=== PATIENT | male | born 1945 | race Caucasian/White ===

== ENCOUNTER 2018-12-01 10:29 | Inpatient (IN) | payer MEDICARE, OTHER ==
[~2018-12-01] VITALS: Ht 177.8 cm; Wt 95.8 kg
[~2018-12-01 10:29] MED LIST: ATOR10 PO; GLIM2 PO; GLYBURIDE; INSULANPEN SC; LISI20 PO; METF500 PO; METFORMIN; Metformin HCl1000 MG PO
[2018-12-01 11:30] LABS: Calcium, Ionized (POC) 1.32 mmol/L (1.10-1.46); Chloride (POC) 108 mmol/L (98-108); Creatinine (POC) 6.2 mg/dL (0.8-1.3); Glucose (ISTAT POC) 182 mg/dL (70-99); Hemoglobin (POC) 10.2 g/dL (13.5-17.5); Potassium (POC) 6.5 mmol/L (3.5-5.5); Sodium (POC) 138 mmol/L (135-148); Total CO2 (POC) 21 mmol/L (21-32)
[2018-12-01 12:46] LABS: BASOPHILS ABSOLUTE AUTO 0.02 K/mm3 (0.00-0.23); BASOPHILS PERCENT AUTO 1 % (0-2); EOSINOPHILS ABSOLUTE AUTO 0.11 K/mm3 (0.00-0.68); EOSINOPHILS PERCENT AUTO 3 % (0-6); Hematocrit 31.2 % (37.0-53.0); Hemoglobin 9.9 g/dL (13.5-17.5); IMMATURE GRAN ABSOLUTE AUTO 0.04 K/mm3 (0.00-0.10); IMMATURE GRAN PERCENT AUTO 1 % (0-1); LYMPHOCYTES ABSOLUTE AUTO 0.85 K/mm3 (0.84-5.20); LYMPHOCYTES PERCENT AUTO 25 % (21-46); MONOCYTES ABSOLUTE AUTO 0.21 K/mm3 (0.16-1.47); MONOCYTES PERCENT AUTO 6 % (4-13); Mean Corpuscular HGB Conc 31.7 g/dL (31.5-36.5); NEUTROPHILS ABSOLUTE AUTO 2.17 K/mm3 (1.96-9.15); NEUTROPHILS PERCENT AUTO 64 % (41-73); Platelet Count 156 K/mm3 (150-400); RDW Coefficient Variation 15.4 % (11.7-14.2); RDW Standard Deviation 60.9 fL (35.1-46.3); Red Blood Cell Count 2.91 M/mm3 (4.30-5.90)
[2018-12-01 13:00] LABS: Mean Corpuscular Volume 107 fL (80-100); Troponin I <0.015 ng/mL (0.000-0.040)
[2018-12-01 13:03] LABS: Alanine Aminotransfer (ALT/SGP 21 U/L (12-78); Albumin, Blood 3.5 g/dL (3.4-5.0); Albumin/Globulin Ratio 0.8 (0.8-1.8); Alk Phos 145 U/L (50-136); Anion Gap 6 mmol/L (6-16); Aspartate Aminotrans (AST/SGOT 7 U/L (12-37); Bilirubin, Total 0.4 mg/dL (0.1-1.0); Blood Urea Nitrogen 66 mg/dL (8-24); Bun/Creatinine Ratio 10.9 (12.0-20.0); CO2, Blood 21 mmol/L (21-32); Calcium, Blood 9.1 mg/dL (8.5-10.1); Chloride, Blood 110 mmol/L (98-108); Creatinine, Blood 6.03 mg/dL (0.60-1.20); Globulin, Blood 4.4 g/dL (2.2-4.0); Glomerular Filtration Rate 10 (60-); Glucose, Blood 162 mg/dL (70-99); Potassium, Blood 6.5 mmol/L (3.5-5.5); Sodium, Blood 137 mmol/L (136-145); Total Protein, Blood 7.9 g/dL (6.4-8.2)
[2018-12-01] MEDS ORDERED: ASPI81CH PO (18:00)
[2018-12-01] MEDS ORDERED: ATOR10 PO (18:04)
--- NOTE | 2018-12-01 18:15 | NUR ---
INITIAL ASSESSMENT PATIENT ARRIVED TO THE UNIT AT 1750. PATIENT WEAK BUT ABLE TO TRANSFER SELF TO ICU BED FROM ER [facility] WITH SBA. PATIENT ALERT AND ORIENTED X 4, AFEBRILE. PATIENT STATES HE HAD "BURNING CHEST PAIN WITH PRESSURE" IN ER JUST BEFORE COMING TO UNIT BUT THAT 2 NITRO HAS ALLEVIATED IT. PATIENT HAS NO COMPLAINTS AT THIS TIME. PATIENT SATTING WELL ON RA. LUNG SOUNDS ARE COARSE THROUGHOUT. PATIENT REPORTS THAT HE HAS HAD AN OCCASIONAL, MOIST, NONPRODUCTIVE COUGH. PATIENT IN SR TO ST, HR 90S TO LOW 100S. BP STABLE. ABDOMEN MODERATELY DISTENDED. PATIENT REPORTS THAT HE HAS BEEN HAVING DIARRHEA FOR ABOUT A MONTH NOW. PATIENT VOIDING YELLOW COLORED URINE INTO BEDSIDE URINAL. PATIENT REPORTS RECENT POLYDIPSIA AND POLYURIA. PATIENT ORIENTED TO ROOM AND CALL SYSTEN. AT BEDSIDE. BED LOW AND CALL LIGHT WITHIN REACH.
--- NOTE | 2018-12-01 18:50 | NUR ---
DR. HAWK IN ROOM TO SEE PATIENT.
--- NOTE | 2018-12-01 18:54 | NUR ---
PATIENT RESTING QUIETLY IN BED, SPEAKING TO DR. BATES. PATIENT HAS NO COMPLAINTS OF PAIN. NURSE STARTING HEPARIN DRIP. D5W 1/2 NS INFUSING AT 50 MLS/ HOUR. VITAL SIGNS REMAIN STABLE. REPORT WILL BE GIVEN TO ONCOMING ARBORIST CLIMBER NURSE SHORTLY.
--- NOTE | 2018-12-01 19:15 | NUR ---
ASSUME CARE: REPORT RECIEVED FROM OFF GOING RN KENNEDY. MONITOR INTACT SHOWING SINUS RHYTHM/SINUS TACH. HEART RATE 80'S-100'S. LUNG SOUNDS CLEAR UPPER WITH COARSE BASES RESPIRATIONS REGULAR AND EASY ON ROOM AIR SPO2 97% ABDOMEN SOFT WITH BOWEL SOUND FOUR QUADS. VOIDS MARIA DEL CARMEN URINE PER URINAL DR HAWK AT BEDSIDE ORDERS NOTED. SEGUNDO WELL. REPOSITIONS SELF IN BED. WILL CONTINUE TO MONITOR AND REPORT CHANGE IN PATIENT CONDITION. SKIN WARM/DRY/INTACT NO EDEMA NOTED
[2018-12-01 20:19] LABS: Source, Urine Voided
[2018-12-01 20:27] LABS: Appearance, Urine Clear (Clear); Bilirubin, Urine Neg (Neg); Blood, Urine Neg (Neg); Color, Urine Yellow (P-Yellow); Glucose Qualitative, Urine 3+ (Neg); Ketones, Urine Neg (Neg); Leukocyte Esterase, Urine Neg (Neg); Nitrite, Urine Neg (Neg); Protein, Urine 1+ (Neg); Urobilinogen, Urine NORM (Normal); pH, Urine 6.5 (5.0-8.0)
[2018-12-01 21:51] LABS: Anion Gap 8 mmol/L (6-16); Blood Urea Nitrogen 67 mg/dL (8-24); Bun/Creatinine Ratio 11.4 (12.0-20.0); CO2, Blood 20 mmol/L (21-32); Calcium, Blood 8.9 mg/dL (8.5-10.1); Chloride, Blood 109 mmol/L (98-108); Creatinine, Blood 5.88 mg/dL (0.60-1.20); Glomerular Filtration Rate 10 (60-); Glucose, Blood 183 mg/dL (70-99); Phosphorus, Blood 3.9 mg/dL (2.5-4.9); Potassium, Blood 6.1 mmol/L (3.5-5.5); Sodium, Blood 137 mmol/L (136-145)
--- NOTE | 2018-12-01 22:01 | NUR ---
DR HAWK NOTIFIED OF LAB RESULTS ORDERS NOTED CONTINUE TO MONITOR AND REPORT CHANGE IN PATIENT CONDITION
--- NOTE | 2018-12-02 02:58 | NUR ---
HEPARIN GTT DOSEAGE CHANGED TO 15UNITS/KG/HR 24.6ML/HR CONTINUE TO MONITOR AND REPORT CHANGE IN PATIENT CONDITION
[2018-12-02 03:50] LABS: BASOPHILS ABSOLUTE AUTO 0.01 K/mm3 (0.00-0.23); BASOPHILS PERCENT AUTO 0 % (0-2); EOSINOPHILS ABSOLUTE AUTO 0.07 K/mm3 (0.00-0.68); EOSINOPHILS PERCENT AUTO 2 % (0-6); Hematocrit 26.9 % (37.0-53.0); Hemoglobin 8.6 g/dL (13.5-17.5); IMMATURE GRAN ABSOLUTE AUTO 0.02 K/mm3 (0.00-0.10); IMMATURE GRAN PERCENT AUTO 1 % (0-1); LYMPHOCYTES ABSOLUTE AUTO 1.05 K/mm3 (0.84-5.20); LYMPHOCYTES PERCENT AUTO 37 % (21-46); MONOCYTES ABSOLUTE AUTO 0.24 K/mm3 (0.16-1.47); MONOCYTES PERCENT AUTO 8 % (4-13); Mean Corpuscular Volume 106 fL (80-100); Mean Platelet Volume 8.6 fL (9.1-12.4); NEUTROPHILS ABSOLUTE AUTO 1.49 K/mm3 (1.96-9.15); NEUTROPHILS PERCENT AUTO 52 % (41-73); Platelet Count 141 K/mm3 (150-400); RDW Coefficient Variation 15.1 % (11.7-14.2); Red Blood Cell Count 2.53 M/mm3 (4.30-5.90); White Blood Cell Count 2.88 K/mm3 (4.00-11.30)
[2018-12-02 04:25] LABS: Bun/Creatinine Ratio 11.8 (12.0-20.0); Calcium, Blood 8.5 mg/dL (8.5-10.1); Creatinine, Blood 5.95 mg/dL (0.60-1.20); Magnesium, Blood 1.5 mg/dL (1.6-2.4); Potassium, Blood 5.5 mmol/L (3.5-5.5)
--- NOTE | 2018-12-02 06:05 | NUR ---
SHIFT SUMMARY: RESTS QUIETLY WHEN UNDISTURBED. AWAKENS EASILY MONITOR INTACT SHOWING SINUS RHYTHM/SINUS TACH. HEART RATE 70'-100. DENIES DISCOMFORT. LUNG SOUNDS CLEAR UPPER LOBES WITH COARSE DECREASED SOUNDS IN THE BASES. SPO2 95-97% SPOT CHECKS ON ROOM AIR RESPIRATIONS REGULAR AND EASY. ABDOMEN SOFT WITH BOWEL SOUNDS FOUR QUADS. VOIDS MARIA DEL CARMEN URINE PER URINAL. GAIT STEADY IN ROOM STANDS TO VOID. SKIN W/D/I. NO EDEMA NOTED. CONTINUE TO MONITOR AND REPORT CHANGE IN PATIENT CONDITION EKG OBTAINED.
--- NOTE | 2018-12-02 07:56 | NUR ---
ASSUMED CARE - DAYSHIFT PATIENT ALERT AND ORIENTED X4. RESP E/U ON ROOM AIR. PATIENT DENIES ANY PAIN. 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 ABD SOFT AND NONTENDER - BOWEL TONES NORMO-ACTIVE. HR REMAINS IN NSR 90'S. PATIENT IS RESTFUL AND DENIES ANY NEEDS AT THIS TIME. VOIDED CLEAR YELLOW URINE. WILL CONTINUE TO MONTIOR.
--- NOTE | 2018-12-02 14:39 | NUR ---
MD HALL TO ROOM FOR CONSULT RAFAEL STATED HE COULD DO PROCEDURE THIS EVENING OR TOMORROW - PATIENT HAS FURTHER QUESTIONS. TO RETURN TO ANSWER AND SIGN CONSENT.
[2018-12-02 16:37] LABS: Anion Gap 10 mmol/L (6-16); Blood Urea Nitrogen 70 mg/dL (8-24); Bun/Creatinine Ratio 11.5 (12.0-20.0); CO2, Blood 19 mmol/L (21-32); Calcium, Blood 8.4 mg/dL (8.5-10.1); Chloride, Blood 110 mmol/L (98-108); Creatinine, Blood 6.08 mg/dL (0.60-1.20); Glomerular Filtration Rate 10 (60-); Glucose, Blood 122 mg/dL (70-99); Phosphorus, Blood 5.1 mg/dL (2.5-4.9); Potassium, Blood 5.3 mmol/L (3.5-5.5); Sodium, Blood 139 mmol/L (136-145)
--- NOTE | 2018-12-02 17:37 | NUR ---
PCU DAYSHIFT SUMMARY PATIENT ALERT AND ORIENTED X4 T/O SHIFT. RESP E/U ON ROOM AIR. PATIENT REPORTS HEADACHE PAIN T/O SHIFT RELIEVED WITH TYLENOL PRN PER EMAR. HR REMAINS IN NSR. PROVIDER RAFAEL TO ROOM TO CONSULT ON NEPHROSTOMY TUBE PLACEMENT - PATIENT CONSENTED TO PROCEDURE. NO S/SX OF DISTRESS T/O SHIFT OR ACUTE DISTRESS. PATIENT VOIDED CLEAR YELLOW URINE T/O SHIFT. PATIENT INDEPENDENT IN ROOM T/O SHIFT. WILL CONTINUE TO MONITOR AND REPORT TO WINTERIZER RN.
--- NOTE | 2018-12-02 19:15 | NUR ---
REPORT RECIEVED FROM OFF GOING RN ART. MONITOR INTACT SHOWING SINUS RHYTHM. HEART RATE 70'S. DENIES CHEST PAIN CO HEADACHE MEDICATED WITH TYLENOL 650MG PO. LUNG SOUNDS CLEAR RESPIRATIONS REGULAR AND EASY ON ROOM AIR. SPO2 95-98% ABDOMEN SOFT WITH BOWEL SOUNDS FOUR QUADS. VOIDS MARIA DEL CARMEN URINE PER URINAL. SKIN W/D/I NO EDEMA NOTED GAIT STEADY IN ROOM. CONTINUE TO MONITOR AND REPORT CHANGE IN PATIENT CONDITION
--- NOTE | 2018-12-03 03:28 | NUR ---
C/O CHEST PAIN 05/06 EKG AND LAB OBTAINED NOT RADIATING CONTINUE TO MONITOR AND REPORT CHANGE IN PATIENT CONDITION
--- NOTE | 2018-12-03 03:43 | NUR ---
CALL TO MD PT REPORTED CHEST PAIN 05/06, EKG DONE AND PT MED WITH NTG SL. CALL OUT TO DR NELSON, ORDER RECEIVED FOR ASA. DR NELSON COMING UP TO SEE PT
--- NOTE | 2018-12-03 03:45 | NUR ---
DR LLANOS AT BEDSIDE. PT STATES CHEST PAIN EASED. AFTER THREE NTG SL. SKIN WARM/DRY. VOIDS MARIA DEL CARMEN URINE PER URINAL. REFUSES ASA "ITS BAD FOR MY KIDNEY." RESPIRATIONS REGULAR AND EASY SPO2 97% ON ROOM AIR. CONTINUE TO MONITOR AND REPORT CHANGE IN PATIENT CONDITION.
--- NOTE | 2018-12-03 07:47 | NUR ---
ASSUMED CARE: PT INDEPENDENT IN ROOM. DENIES NEEDS OR CONCERNS. CALL TO HEART CENTER TO DETERMINE TIME OF SURGERY AND WHEN HEPARIN SHOULD BE STOPPED. LASHAY IN HEART CENTER STATED SHE WOULD LOOK INTO IT AND CALL BACK. NO FURTHER NEEDS AT THIS TIME
--- NOTE | 2018-12-03 08:09 | NUR ---
ESTEBAN FROM [facility] CALLED AND STATED DR HALL INSTRUCTS TO TURN HEPARIN OFF NOW AND THAT PT WILL BE ANTICIPATED FOR PROCEDURE THIS AFTERNOON. PHARMACY AWARE THAT HEPARIN HAS BEEN TURNED OFF. SPOKE WITH ROSIE. PT SITTING UPRIGHT ON SIDE OF BED EATING BREAKFAST. [facility] INSTRUCTS NPO AFTER THIS
[2018-12-03 08:42] LABS: Albumin, Blood 3.1 g/dL (3.4-5.0); Anion Gap 13 mmol/L (6-16); Blood Urea Nitrogen 65 mg/dL (8-24); Bun/Creatinine Ratio 11.4 (12.0-20.0); CO2, Blood 19 mmol/L (21-32); Calcium, Blood 8.8 mg/dL (8.5-10.1); Chloride, Blood 109 mmol/L (98-108); Creatinine, Blood 5.71 mg/dL (0.60-1.20); Glomerular Filtration Rate 10 (60-); Glucose, Blood 150 mg/dL (70-99); Phosphorus, Blood 5.7 mg/dL (2.5-4.9); Potassium, Blood 4.8 mmol/L (3.5-5.5); Sodium, Blood 141 mmol/L (136-145)
--- NOTE | 2018-12-03 17:21 | NUR ---
PT CURRENTLY IN PROCEDURE AT CATALYST MANUFACTURING OPERATOR. WAITING IN ROOM
--- NOTE | 2018-12-03 18:04 | NUR ---
SHIFT SUMMARY: PT REMAINS IN PROCEDURE FOR NEPHROSTOMY PLACEMENT. AT BEDSIDE. BLOOD SUGARS HAVE BEEN STABLE AND PT DECLINED CHEST PAIN. NO ACUTE CHANGES OR NEEDS NOTED
--- NOTE | 2018-12-03 18:24 | NUR ---
PT RETURNED FROM PROCEDURE. NEPHROSTOMY IN PLACE LEFT FLANK DRAINING RED OUTPUT. CALL TO DR HALL TO ASK ABOUT DIET AND RESTARTING HEPARIN. OK FOR PT TO EAT. DISCUSSING HEPARIN WITH PHARMACY NOW
--- NOTE | 2018-12-03 20:00 | NUR ---
ASSUMED CARE OF PATIENT REPORT RECEIVED FROM JASMIN FLORES. PT BACK FROM SURGERY FOR NEPHROSTOMY. PT IS ALERT AND ORIENTED AND STATES HE HAS A 5/10 PAIN LEVEL IN HIS LEFT FLANK. BLOOD TINGED OUTPUT NOTICED. PT ABLE TO STAND AT BEDSIDE TO USE URINAL WITH NO NAUSEA OR DIZZINESS AND 250 OF LIGHT YELLOW URINE. D5W 1/2 RUNNING @50 ML/HR AND HEPARIN RUNNING AT 23 U/KG/HR. PT REMINDED TO USE CALL LIGHT APPROPRIATE FOR ASSISTANCE AMBULATING. SEE FULL SHIFT SUMMARY.
[2018-12-04 04:00] LABS: Anion Gap 10 mmol/L (6-16); Blood Urea Nitrogen 59 mg/dL (8-24); Bun/Creatinine Ratio 10.7 (12.0-20.0); CO2, Blood 20 mmol/L (21-32); Calcium, Blood 8.7 mg/dL (8.5-10.1); Chloride, Blood 111 mmol/L (98-108); Creatinine, Blood 5.51 mg/dL (0.60-1.20); Glomerular Filtration Rate 11 (60-); Glucose, Blood 173 mg/dL (70-99); Phosphorus, Blood 5.4 mg/dL (2.5-4.9); Potassium, Blood 4.8 mmol/L (3.5-5.5); Sodium, Blood 141 mmol/L (136-145)
--- NOTE | 2018-12-04 06:17 | NUR ---
SHIFT SUMMARY NO ACUTE CHANGES OVERNIGHT. PT ON 25 UNITS/KG/HR HEPARIN. LEFT NEPHROSTOMY HAD 3450 ML OF BLOOD TINGED URINE OUTPUT. ADDITIONALLY PT PUT OUT 750 ML URINE USING URINAL. PT IS STEADY ON HIS FEET AND REPORTS NO DIZZINESS/NAUSEA. LUNG SOUNDS CLEAR. PT MEDICATED FOR PAIN NEEDED. WILL REPORT TO DAYSHIFT NURSE.
--- NOTE | 2018-12-04 07:12 | NUR ---
ASSUMED CARE: PT RESTING QUIETLY. HEPARIN AND D5 1/2 NS RUNNING. NEPHROSTOMY PUTTING OUT CRANBERRY COLORED OUTPUT. PT INDEPENDENT IN ROOM. NO ACUTE NEEDS OR CONCERNS AT THIS TIME.
--- NOTE | 2018-12-04 11:44 | NUR ---
PT STATED DR HAWK CAME IN TO SEE HIM THIS AM. CALL TO DR HAWK TO GET DC INSTRUCTIONS. MESSAGE LEFT WITH DR SHAH'S CELL TO RELAY INFO. AWAITING CALL BACK
[2018-12-04] MEDS ORDERED: ACET325 PO (13:55)
[2018-12-04] MEDS ORDERED: ISOMON20 PO (13:56)
[2018-12-04] MEDS ORDERED: NITR.4SL SL (13:57)
[2018-12-04] MEDS ORDERED: OXYC5 PO (13:58)
--- NOTE | 2018-12-04 15:00 | NUR ---
PT'S IV DC'D WNL. DISCUSSED AND PROVIDED INSTRUCTIONS FOR CARE OF NEPHROSTOMY. PT TO HAVE FOLLOW UP WITH HOME HEALTH. PT SPOKE WITH SOLEDAD LAMAR PRIOR TO DC TO ARRANGE FOLLOW UP WITH HH. PT AWARE OF FOLLOW UP APPOINTMENTS WITH DR HAWK AND [facility]. ROLO FROM [facility] STATES THE OFFICE WILL ARRANGE FOLLOW UP WITH UROLOGY. LEG BAG AND EXTRA LARGE BAG PROVIDED. PT DECLINES FURTHER QUESTIONS OR CONCERNS. AMBULATORY UPON DC.
== END 2018-12-04 15:05 | disposition home health service (06) | DRG 543 ==
LOC: ER 10:29 → ICUE 15:27 → PCU 15:27 → ICUE 17:26
PROVIDERS: Emergency Medicine; Internal Medicine; ADMIT Family Medicine
PROC: 0T9430Z Drainage of Left Kidney Pelvis with Drainage Device, Percutaneous Approach (ICD-10-PCS; principal; 2018-12-03)
DX: C49.9 Malignant neoplasm of connective and soft tissue, unspecified (principal); N17.9 Acute kidney failure, unspecified; N13.30 Unspecified hydronephrosis; Z90.5 Acquired absence of kidney; E87.5 Hyperkalemia; Z85.46 Personal history of malignant neoplasm of prostate; Z90.79 Acquired absence of other genital organ(s); Z87.891 Personal history of nicotine dependence; Z79.4 Long term (current) use of insulin; E78.5 Hyperlipidemia, unspecified; D63.1 Anemia in chronic kidney disease; Z66 Do not resuscitate; N18.3 Chronic kidney disease, stage 3 (moderate); E11.22 Type 2 diabetes mellitus with diabetic chronic kidney disease; I12.9 Hypertensive chronic kidney disease with stage 1 through stage 4 chronic kidney disease, or unspecified chronic kidney disease; I25.5 Ischemic cardiomyopathy; R51 Headache
CPT/HCPCS: 36415; 50432; 71046; 76770; 76998; 78452; 80047; 80048; 80053; 80061; 80069; 82550; 82947; 83036; 83735; 84075; 84484; 85014; 85025; 85730; 93005; 93010; 93017; 96361; 96374; 96375; 99152; 99153; 99285-25; A9500; C1769; J0610; J1644; J1815; J1940; J2250; J2270; J2785; J3010; J7040; J7042; J7120; Q9967

== ENCOUNTER 2018-12-15 22:27 | Inpatient (IN) | payer MEDICARE, OTHER ==
[~2018-12-15] VITALS: Ht 177.8 cm; Wt 96.9 kg
[~2018-12-15 22:27] MED LIST changes: +ACET325 PO; +ASPI81CH PO; +ISOMON20 PO; +NITR.4SL SL; +OXYC5 PO
[2018-12-15 23:10] LABS: Calcium, Ionized (POC) 1.34 mmol/L (1.10-1.46); Chloride (POC) 98 mmol/L (98-108); Creatinine (POC) 2.4 mg/dL (0.8-1.3); Glucose (ISTAT POC) 204 mg/dL (70-99); Hemoglobin (POC) 10.5 g/dL (13.5-17.5); Potassium (POC) 4.6 mmol/L (3.5-5.5); Sodium (POC) 139 mmol/L (135-148); Total CO2 (POC) 24 mmol/L (21-32)
[2018-12-15 23:15] LABS: BASOPHILS ABSOLUTE AUTO 0.02 K/mm3 (0.00-0.23); BASOPHILS PERCENT AUTO 0 % (0-2); EOSINOPHILS ABSOLUTE AUTO 0.02 K/mm3 (0.00-0.68); EOSINOPHILS PERCENT AUTO 0 % (0-6); Hematocrit 31.4 % (37.0-53.0); Hemoglobin 10.3 g/dL (13.5-17.5); IMMATURE GRAN ABSOLUTE AUTO 0.04 K/mm3 (0.00-0.10); IMMATURE GRAN PERCENT AUTO 1 % (0-1); LYMPHOCYTES ABSOLUTE AUTO 1.15 K/mm3 (0.84-5.20); LYMPHOCYTES PERCENT AUTO 25 % (21-46); MONOCYTES ABSOLUTE AUTO 0.68 K/mm3 (0.16-1.47); MONOCYTES PERCENT AUTO 15 % (4-13); Mean Corpuscular HGB 34.6 pg (26.0-34.0); Mean Corpuscular HGB Conc 32.8 g/dL (31.5-36.5); Mean Corpuscular Volume 105 fL (80-100); Mean Platelet Volume 9.6 fL (9.1-12.4); NEUTROPHILS ABSOLUTE AUTO 2.74 K/mm3 (1.96-9.15); NEUTROPHILS PERCENT AUTO 59 % (41-73); Platelet Count 154 K/mm3 (150-400); RDW Coefficient Variation 16.2 % (11.7-14.2); RDW Standard Deviation 62.2 fL (35.1-46.3); Red Blood Cell Count 2.98 M/mm3 (4.30-5.90); White Blood Cell Count 4.65 K/mm3 (4.00-11.30)
[2018-12-15 23:30] LABS: International Normalized Ratio 1.07; Prothrombin Time Results 11.3 Sec (9.7-11.5)
[2018-12-15 23:31] LABS: Albumin, Blood 3.5 g/dL (3.4-5.0); Albumin/Globulin Ratio 0.8 (0.8-1.8); Bilirubin, Total 0.5 mg/dL (0.1-1.0); Calcium, Blood 9.7 mg/dL (8.5-10.1); Creatinine, Blood 2.31 mg/dL (0.60-1.20); Globulin, Blood 4.6 g/dL (2.2-4.0); Potassium, Blood 4.4 mmol/L (3.5-5.5); Total Protein, Blood 8.1 g/dL (6.4-8.2)
[2018-12-15 23:32] LABS: Troponin I 8.1 ng/mL (0.000-0.040)
--- NOTE | 2018-12-16 02:00 | NUR ---
PT ARRIVED TO ICU-8 FROM SCREW MACHINE OPERATOR SWISS TYPE SP PCI FOR STEMI. PT W PT. PT CONT TO CHEST PAIN RATING 8/10, PT IS ALERT & MOANING. PT W R RADIAL ACCESS & TR BAND REMAINS INFLATED W ARM BOARD IN PLACE. FINGERS WARM, CO MILD NUMBNESS THAT HE STATES IS NORMAL, "NOT MORE THAN USUAL". PT HAS LEVOPHED INFUSING AT 10 MCG/MIN & DOPAMINE AT 5 MCG/KG/MIN. MONITOR SHOWS AFIB W FREQ PVC'S, HR IS 70'S. DOPAMINE ADJUSTED TO CORRECTED WT AND WAS ALSO DECREASED TO 3MCG/KG/MIN AFTER HR NOTED TO BE INCREASED TO AFIB 120'S. LEVOPHED WAS INCREASED TO 15MCG/MIN. DR DOMINGUEZ IN TO SEE PT, DISCUSSED PLAN W THIS RN & PT . ORDERS REC'D. PRESSORS INFUSING PERIPHERALLY, WILL DOWN TIRATE ABLE & CONT TO MONITOR SITES. PT HAS BEEN MED W FENTANYL 12.5MCG W LITTLE EFFECT. O2 TITRATED TO 3LNC.
--- NOTE | 2018-12-16 04:30 | NUR ---
PT HAS BEEN MED W FENTANYL 12.MCG X 2, AND OXYCODONE 10MG. CONT TO CO PAIN, BUT SEEMS MORE RELAXED & RESTS FOR VERY SHORT PERIODS. PT STATES PAIN IS THE SAME- SLIGHTLY LESS THAT WHEN HE CAME TO HOSP. ADMIT HX IN PROGRESS, PT REMAINS AT BEDSIDE. R RADIAL SITE CONT WO BLEEDING, FINGERS CONT WARM & SENSATION US UNCHANGED, ARMBOARD IN PLACE. PT REMINDED RE RESTRICTIONS, BED ALARM ENGAGED WHEN PT TRIED TO SIT SIDE OF BED. L NEPHROSTOMY DRAIN TO GRAVITY, PALE YELLOW URINE, DRSG IS C/D/I & CATHETER SECURED W STATLOCK.
--- NOTE | 2018-12-16 06:30 | NUR ---
PT AWAKE, ALERT & STATES CHEST PAIN CONTINUES BUT CONT TO DECREASE IN INTENSITY. PT HAS CONVERTED TO SR, HAS HAD A COUPLE SHORT, SELF LIMITING RUNS OF VTACH. DOPAMINE AT 1MCG/KG/MIN & LEVOPHED AT 11MCG/MIN. HEPARIN CONT AT 13U/KG/HR PER DOSING WT. DISCUSSED PT WISHES FOR DNR, PT HAS ADVANCED DIRECTIVE, NOTED NOT ON FILE. DISCUSSED PALLIATIVE CARE IN SOME DETAIL W PT & PT RE GOALS FOR CARE & PT WISHES. ALSO DISCUSSED POLST & FORM PLACED ON CHART. PALLIATIVE CARE CONSULTED.
--- NOTE | 2018-12-16 07:34 | NUR ---
ASSUMED CARE OF PT THIS AM PT. ALERT AND ORIENTED AT THIS TIME. REPOSITIONING HIMSELF IN BED; NEEDING REMINDED TO NOT PUSH OR PULL WITH RIGHT ARM. ARM BOARD REMAINS IN PLACE. UPON ASSUMING CARE OF PT. TR BAND DEFLATED SLOWLY. NO BLEEDING/ BRUISING NOTED TO SITE. PT. CONTINUES WITH PRESSORS THROUGH PERIPHERAL IVS. IV FLUSHED AND REMAINS PATENT. DOPAMINE PLACED ON STAND BY AT THIS TIME, AND LEVOPHED GTT DECREASED TO 11MCG/KG/MIN. PT HAS HEPARIN GTT INFUSING WELL AT 13U/KG/HR. PT CONTINUES TO REPORT CHEST PAIN HOWEVER REPORTS THE PAIN IS SIGNIFICANTLY DECREASED SINCE LAST NIGHT RATES PAIN AT 4/10 AT THIS TIME AND DESCRIBES IT A PRESSURE TO CHEST. REMAINS ON 2LNC AT THIS TIME; LS CLEAR T/O. PT HAS NEPHROSTOMY DRAINING TO GRAVITY. DNR ORDER VERIFIED WITH AN CASTELLANOS AND PLACED TO LEFT WRIST. PT REMAINS AT BEDSIDE. CALL LIGHT IN REACH.
--- NOTE | 2018-12-16 08:00 | NUR ---
DR. DOMINGUEZ IN TO SEE PT. EFM TO BE CONSULTED
--- NOTE | 2018-12-16 08:05 | NUR ---
DR. LAUREN CALLED FOR CONSULT SPOKE WITH PHYSICIAN; PLANS TO SEE PT THIS AFTERNOON
[2018-12-16 08:24] LABS: Hematocrit 30.6 % (37.0-53.0); Hemoglobin 9.6 g/dL (13.5-17.5); Mean Corpuscular HGB 34.2 pg (26.0-34.0); Mean Corpuscular HGB Conc 31.4 g/dL (31.5-36.5); Mean Platelet Volume 9.6 fL (9.1-12.4); Platelet Count 143 K/mm3 (150-400); RDW Coefficient Variation 16.5 % (11.7-14.2); RDW Standard Deviation 66.2 fL (35.1-46.3); Red Blood Cell Count 2.81 M/mm3 (4.30-5.90); White Blood Cell Count 7.36 K/mm3 (4.00-11.30)
[2018-12-16 08:31] LABS: Mean Corpuscular Volume 109 fL (80-100)
[2018-12-16 08:52] LABS: Bun/Creatinine Ratio 12.2 (12.0-20.0); Creatinine, Blood 2.62 mg/dL (0.60-1.20); Magnesium, Blood 1.5 mg/dL (1.6-2.4); Potassium, Blood 5.5 mmol/L (3.5-5.5)
--- NOTE | 2018-12-16 09:15 | NUR ---
DR. LAUREN AT BEDSIDE PLANS TO CONSULT DR. GARRETT FOR ASSISTANCE WITH HYPOTENSION. PT. STARTED ON 250CC BOLUS NS; LEVOPHED AT 13MCG/KG/MIN. TABLE GAMES FLOOR SUPERVISOR NOTIFIED OF NEED FOR CENTRAL ACCESS.
[2018-12-16 09:31] LABS: Troponin I 81.2 ng/mL (0.000-0.040)
--- NOTE | 2018-12-16 09:38 | NUR ---
PICC LINE NURSE AT BEDSIDE FOR PLACEMENT.
--- NOTE | 2018-12-16 09:50 | NUR ---
CALL TO DR. DOMINGUEZ TO UPDATE ON PATIENT CONDITION PT. HEART RATE TRENDING DOWN, NOW 55, BP TRENDING DOWN WELL WHILE HAVING TO INCREASE PRESSORS. PICC NURSE ATTEMPTING LINE AT THIS TIME. LABS REPORTED TO DR. DOMINGUEZ. DOPAMINE TO BE RESTARTED ONCE CENTRAL LINE IS ESTABLISHED.
--- NOTE | 2018-12-16 10:00 | NUR ---
HYPOTENSION PT CONTINUES WITH HYPOTENSION LEVOPHED GTT INCREASED TO 20MCG/KG/MIN. 500CC BOLUS OF NS STARTED. CONTINUING TO ATTEMPT PICC LINE INSERTION. PT. PALE AND DIAPHORETIC. PT. CALLED TO RETURN TO HOSPITAL AT THIS TIME. DR. GARRETT AWARE.
--- NOTE | 2018-12-16 10:36 | NUR ---
PICC LINE PLACED. LEVOPHED GTT RUNNING AT 20MCG/KG/MIN, DOPAMINE GTT RESTARTED AT 5MCG/KG/MIN HR NOW 103, BP 118/65 (95). PT NOW REPORTING 10/10 BACK PAIN. MED WITH 12.5MCG FENTANYL PER DR. SCHERER. PT AND PALLIATIVE CARE AT BEDSIDE. PT. REMAINS PALE AND DIAPHORETIC. OXYGEN INCREASED TO 4L AT THIS TIME.
[2018-12-16 10:43] LABS: Hematocrit 28.9 % (37.0-53.0); Hemoglobin 8.8 g/dL (13.5-17.5)
--- NOTE | 2018-12-16 11:00 | NUR ---
COMFORT CARE DECISION MADE BY PATIENT TO BE MADE COMFORT MEASURES ONLY. PT AT BEDSIDE AT THIS TIME OF DECISION AND AGREED WITH PT. PALLIATIVE CARE RN AND SPIRITUAL CARE AT BEDSIDE. PT. CONTINUES TO C/O 10/10 PAIN TO CHEST AND BACK. PT. MED WITH MORPHINE PER DR. SCHERER. DR. DOMINGUEZ AND DR. LAUREN NOTIFIED OF PT DECISION AT THIS TIME. WILL CONTINUE TO KEEP PT COMFORTABLE PER DR. SCHERER.
--- NOTE | 2018-12-16 11:30 | NUR ---
0930 - Met pt briefly for first time before CL insertion and called to arrange time this am to complete a POLST form as requested. Pt had been to labor relations manager and is in a lot of pain and cardiac distress. Nursing staff working on new orders and critical care. I returned to unit when Nurse paged me to let me know had returned. I met with and pt. He reports 10/10 pain even after IV pain medication administered. Coached him in deep breathing and cool cloth to forehead. This was minimally helpful. Pt asked me if he was dying, I told him I was unable to answer that question but that he had some very serious medical issues he was facing and I would listen to what he wanted in regards to his goals for care going forward. and pt had already told multiple staff and Drs that he did not want CPR or intubation His number one priority currently is relief of unbearable pain that he states he cannot take much longer. He initially described the pain as mid/upper back, excruciating. Later he described the pain as more chest and back. Dr. Vasquez rounded and reviewed cardiac issues, called for drill rig operator helper input and came back to tell pt and that drill rig operator helper reports that there are no further cardiac interventions available to pt due to his need for CABG and not being a candidate due to his cancer. is appropriately tearful. Dr Vasquez and I both discussed option of making pt comfortable and discontinuing agressive life sustaining tx. After several conversations and pt's quesitons answered he states he wants to be comfortable and discontinue cardiac/pulm support. Dr Vasquez entered comfort care orders and charge account identification clerk notified drill rig operator helper and EFM Dr. Root of change in status to comfort care. at bedside for entire 90 minute visit. She verbalizes support for pt's decision. We asked pt if he would like a Radiation Protection Specialist to visit and he said yes. I asked if there was family I could call for either of them to either come if able or explain the current situation. Both pt and stated no. Her sister lives next door to her and is caring for their dogs and is aware. Their best friend also lives next door and is aware. Son in [place] has been called by Romy this am. Radiation Protection Specialistprince Lazar visited and prayed with Romy and Eddie. As pt's pain level decreased he started to crack jokes with us and . Pt's pain was improved once Roxanol was administered x 3 doses per eMAR and ativan given. Pt stated to , " I guess this means we aren't going camping." Though tearful, able to enjoy Eddie's humor. They are clearly devoted and loving with each other. They talked about their weekly [place] game. Pt started to dose off at times, but woke in pain again frequently. Once pt able to identify that he was experiencing relief of pain, Chaplain Lazar and I repositioned him, moving him up in bed and turned to the right side toward his . His breathing, when asleep became much less obstructed but he was still working to breathe. All of this reported to RN, who had also been in the room for most of the past 90 minutes but was out of the room when I left. encouraged to let us know if pt or she needed anything and we left to allow them some time alone.
--- NOTE | 2018-12-16 12:35 | NUR ---
Echocardiogram completed.
--- NOTE | 2018-12-16 13:00 | NUR ---
PT RESTLESS IN BED HEART RATE NOW IN THE 40'S; DISCONNECTED FROM TELE FOR COMFORT. PT. AT BEDSIDE. PT SON UPDATED PER PT. REQUEST. MED FOR PAIN PER REQUEST FOR MOANING AND RESTLESSNESS.
--- NOTE | 2018-12-16 13:45 | NUR ---
REPORT TO JANUARY CASTELLANOS; TO ASSUME CARE WHILE BREAKING THIS RN
--- NOTE | 2018-12-16 13:55 | NUR ---
PATIENT'S CALLED THIS RN TO ROOM 8 ICU. PATIENT TOOK SEVERAL DEEP BREATHS AND THEN . PRONOUNCED BY DR GARRETT AT 1400. CRYING AND THIS RN CALLED HER SISTER TO COME AND BE WITH HER. PIPPA WHILE SAHE CRIED. PATS RING REMOVED AND GIVEN TO WITH HIS OTHER BELONGINGS.
--- NOTE | 2018-12-16 14:30 | NUR ---
PT PASSED WHILE THIS RN WAS AT LUNCH. SEE NOTE FROM JANUARY TIWARI RN, REGARDING PT PASSING. PRONOUNCED AT [address] GARRETT. PT TOOK PT BELONGINGS INCLUDING PT GOLD RING HOME.
--- NOTE | 2018-12-16 17:31 | NUR ---
Met with pt's spouse, Cally, several times throughout the morning. Prayer and anticipatory bereavement college and career counselor/education well recieved. Present at TO. I stayed with Cally until family arrived to escort her home. Eddie pased peacefully thanks to excellent nursing. [facility] was selected for arrangements.
--- NOTE | 2018-12-16 18:14 | NUR ---
PT MOVED TO SURGICAL FLOOR ROOM TO AWAIT TISSUE DONATION TEAM.
== END 2018-12-16 14:00 | DRG 249 ==
LOC: ER 22:27 → ICUE 23:24 → ICUW 23:24 → ICUE 23:27
PROVIDERS: Emergency Medicine; Internal Medicine Critical Care Medicine; ADMIT Emergency Medicine
PROC: 4A023N7 Measurement of Cardiac Sampling and Pressure, Left Heart, Percutaneous Approach (ICD-10-PCS; 2018-12-15)
PROC: B210YZZ Fluoroscopy of Single Coronary Artery using Other Contrast (ICD-10-PCS; 2018-12-15)
PROC: 02HV33Z Insertion of Infusion Device into Superior Vena Cava, Percutaneous Approach (ICD-10-PCS; 2018-12-15)
PROC: 3E043XZ Introduction of Vasopressor into Central Vein, Percutaneous Approach (ICD-10-PCS; 2018-12-15)
PROC: 02703DZ Dilation of Coronary Artery, One Artery with Intraluminal Device, Percutaneous Approach (ICD-10-PCS; principal; 2018-12-16)
DX: I21.19 ST elevation (STEMI) myocardial infarction involving other coronary artery of inferior wall (principal); C79.89 Secondary malignant neoplasm of other specified sites; C49.4 Malignant neoplasm of connective and soft tissue of abdomen; I31.9 Disease of pericardium, unspecified; N17.9 Acute kidney failure, unspecified; N18.9 Chronic kidney disease, unspecified; I12.9 Hypertensive chronic kidney disease with stage 1 through stage 4 chronic kidney disease, or unspecified chronic kidney disease; E87.5 Hyperkalemia; E11.40 Type 2 diabetes mellitus with diabetic neuropathy, unspecified; I25.5 Ischemic cardiomyopathy; E11.22 Type 2 diabetes mellitus with diabetic chronic kidney disease; R57.0 Cardiogenic shock; Z90.5 Acquired absence of kidney; Z87.891 Personal history of nicotine dependence; Z79.82 Long term (current) use of aspirin; I95.9 Hypotension, unspecified; Z51.5 Encounter for palliative care; Z66 Do not resuscitate; D63.1 Anemia in chronic kidney disease; I24.9 Acute ischemic heart disease, unspecified; E78.5 Hyperlipidemia, unspecified; E55.9 Vitamin D deficiency, unspecified; N18.3 Chronic kidney disease, stage 3 (moderate); Z85.46 Personal history of malignant neoplasm of prostate; E83.52 Hypercalcemia
CPT/HCPCS: 36415; 36569; 71045; 80047; 80048; 80053; 80069; 83735; 84484; 85014; 85018; 85025; 85027; 85347; 85610; 85651; 85730; 86141; 92941; 93005; 93010; 93306; 93454; 96361; 96374; 96375; 99285-25; C1725; C1751; C1757; C1769; C1876; C1887; C1894; J1265; J1644; J2060; J2250; J2270; J2405; J3010; J7030; J7060; Q9967